=== PATIENT | female | born 1990 | race Caucasian/White ===

== ENCOUNTER 2017-04-15 22:31 | Emergency (ER) | payer OTHER ==
[~2017-04-15] VITALS: Ht 149.9 cm; Wt 59.0 kg
[2017-04-15] MEDS ORDERED: ALBU8HFA IH (22:34)
[2017-04-15] MEDS ORDERED: IBUPROFEN 800 MG TABLET PO ONE (23:00)
[2017-04-15] MEDS ORDERED: LIDOCAINE HCL 2% VISCOUS 15 ML SOLUTION UDCUP PO ONE (23:00)
[2017-04-15] MEDS ORDERED: LIDOCAINE HCL BUFFERED 1% 20 ML VIAL INJ ONE (23:15)
[2017-04-15 23:36] VITALS: BP 133/87
== END 2017-04-15 23:47 | disposition home or self-care (01) ==
LOC: EMS 22:32
DX: H92.02 Otalgia, left ear (principal); T16.2XXA Foreign body in left ear, initial encounter; Z88.8 Allergy status to other drugs, medicaments and biological substances; X58.XXXA Exposure to other specified factors, initial encounter; Y93.89 Activity, other specified; Y92.9 Unspecified place or not applicable; Y99.9 Unspecified external cause status
CPT/HCPCS: 99284; J3490